=== PATIENT | male | born 1950 | race African-American/Black ===

== ENCOUNTER 2020-05-12 17:22 | Emergency (ER) | payer OTHER ==
[~2020-05-12] VITALS: Ht 182.9 cm; Wt 72.6 kg
[2020-05-12 18:57] LABS: ABSOLUTE NEUTROPHILS 5.3 thou/uL (1.4-8.2); BASOPHILS 0.2 % (0.0-2.0); HEMATOCRIT 37.1 % (42.0-52.0); HEMOGLOBIN 12.4 gm/dL (14.0-18.0); LYMPHOCYTES 13.3 % (24.0-44.0); MCHC 33.4 g/dL (28.0-37.0); MCV 86.6 fL (80.0-100.0); MONOCYTES 6.7 % (1.0-8.0); PLATELET COUNT 293 thou/uL (150-400); POLYS 77.8 % (36.0-66.0); RBC 4.29 mil/uL (4.50-6.00); RDW 15.8 % (10.5-14.5); WBC 6.9 thou/uL (4.0-11.0)
[2020-05-12 19:05] LABS: ANION GAP 7 mmol/L (7-16); BUN 23 mg/dL (7-18); CALCIUM 8.8 mg/dL (8.5-10.1); CHLORIDE 102 mmol/L (98-107); CO2 29 mmol/L (21-32); CREATININE 1.3 mg/dL (0.7-1.3); GLUCOSE 141 mg/dL (74-106); POTASSIUM 4.5 mmol/L (3.5-5.1); SODIUM 138 mmol/L (136-145)
[2020-05-12 19:14] LABS: MAGNESIUM 1.8 mg/dL (1.8-2.4); TROPONIN-I <0.06 ng/mL (<0.06)
[2020-05-12] MEDS ORDERED: GLUCOPHAGE1000 MG PO (19:20)
[2020-05-12] MEDS ORDERED: ASPIRIN325 PO (19:20)
[2020-05-12] MEDS ORDERED: LIPITOR10 MG PO (19:21)
[2020-05-12] MEDS ORDERED: ARICEPT10 M1 PO (19:21)
[2020-05-12] MEDS ORDERED: OXYBUTYNIN 5 MG5 M2 PO (19:22)
[2020-05-12 19:36] LABS: URINE BLOOD NEGATIVE (Negative); URINE CLARITY CLEAR; URINE COLOR YELLOW; URINE GLUCOSE-RANDOM* 1+ (Negative); URINE KETONES NEGATIVE (Negative); URINE LEUKOCYTES-REFLEX NEGATIVE (Negative); URINE NITRITE-REFLEX NEGATIVE (Negative); URINE PROTEIN (DIPSTICK) TRACE (Negative); URINE SPECIFIC GRAVITY >= 1.030 (1.005-1.035)
[2020-05-12 19:38] LABS: ICTOTEST (BILI CONFIRMATORY) Negative (Negative); URINE BILIRUBIN NEGATIVE (Negative)
[2020-05-12 21:25] VITALS: BP 108/63
--- NOTE | 2020-05-13 07:47 | EKG ---
[facility] [place] [address] ELECTROCARDIOGRAM REPORT Name: BERTO ALEX Room #: DEP [facility].#: [id number] Admission: 05/12/20 Attend Phys: Discharge: 05/12/20 Date of : 48 Report #: [id number] THIS REPORT FOR: cc: ISRRAEL - Naina family physician/PCP FAM - Naina family physician/PCP Danilo Weiss MD [facility] THIS REPORT FOR: //name// [facility] ED Test Date: 2020-05-12 Test Time: 18:13:54 Pat Name: BERTO ALEX Department: Room: Gender: Title Checker: no : 1950 Requested By: Alphonse Mcfadden Order Number: [id number] MD: Danilo Weiss Measurements Intervals [place] Rate: 90 P: 44 IN: 133 QRS: 56 QRSD: 81 T: 62 QT: 355 QTc: 435 Interpretive Statements Sinus rhythm Normal tracing No previous ECG available for comparison Electronically Signed On 05-13-2020 7:47:46 CDT by Danilo Weiss [email or web address] <ELECTRONICALLY SIGNED> By: Danilo Weiss MD, [facility] 05/13/20 0747 1813 12 Danilo Weiss MD, FACC /EPI
== END 2020-05-12 20:30 | disposition home or self-care (01) ==
LOC: ER 17:22
PROVIDERS: Emergency Medicine
DX: R53.1 Weakness (principal); R41.0 Disorientation, unspecified; Z79.82 Long term (current) use of aspirin; Z79.899 Other long term (current) drug therapy; Z20.828 Contact with and (suspected) exposure to other viral communicable diseases

== ENCOUNTER 2020-10-19 03:37 | Inpatient (IN) | payer OTHER ==
[~2020-10-19] VITALS: Ht 182.9 cm; Wt 68.0 kg
--- NOTE | ~2020-10-19 | EEG ---
[facility] [place] [address] ELECTROENCEPHALOGRAM Name: BERTO ALEX Room #: 461-P ADM IN M.R.#: [id number] Admission: 10/19/20 Attend Phys: Vinay Harvey MD Discharge: Date of : 48 Report #: [id number] THIS REPORT FOR: //name// DATE OF SERVICE: 10/21/2020 This patient is being evaluated for the possibility of seizure. EEG was done by placing the electrode by standard 10-20 system of electrode placement. Both referential and sequential montages were used for recording. Background activity in this patient's EEG is about 7-8 Hz and 30 microvolt. It is a symmetrical activity. Photic stimulation is unremarkable. The patient became drowsy that is associated with bilateral slowing and vertex sharp waves. Throughout the record, no active epileptiform activity was noticed. IMPRESSION: This patient's EEG is poorly formed and somewhat disorganized. That is a nonspecific abnormality, which can occur with dementia, encephalopathy, effect of psychotropic medication, etc. Clinical correlation is recommended. By: 04 18 Braden Mariee MD /nt
--- NOTE | ~2020-10-19 | HC ---
[facility] [place] [address] CONSULTATION Name: BERTO ALEX Room #: 461-P ADM IN M.R.#: [id number] Admission: 10/19/20 Attend Phys: Vinay Harvey MD Discharge: Date of : 48 Report #: [id number] THIS REPORT FOR: cc: ISRRAEL - No family physician/PCP FAM - No family physician/PCP Braden Mariee MD ~ DATE OF SERVICE: 10/20/2020 HISTORY OF PRESENT ILLNESS: This is a 70-year-old male patient who was evaluated by me for seizure. The patient is not able to provide any history. I reviewed all the notes and subsequently called the patient's . The indicates that this patient has advanced dementia which is present for a long time. He saw a neurologist at one time. He does not remember when but a few years ago. Now, he may need a followup with his primary care physician. He was admitted with many episodes of confusion. I reviewed the notes. The notes indicate that the ambulance people had been to his house multiple times. I am not getting a clear history from the . The provides care, but home health visits the patient sometime, she said she provides care, mostly by herself. REVIEW OF SYSTEMS: Indicate that this patient appeared to have an advanced dementia. He had what looks like a seizure from Emergency Room, they gave him Keppra. When I saw him, he was conscious and alert, but his memory was very poor and that will be described later. REVIEW OF SYSTEMS: A 14-point review of system was carried out. It looks like his blood sugar was 153 when the ambulance people saw him. He did have sodium of 148, which was trace high. Rest of the 14-point review of system, the best I can get from the records as well as from the is mostly noncontributory except he had a stroke in the past. He has generalized weakness. PAST MEDICAL HISTORY: Negative for seizure, but positive for dementia. FAMILY HISTORY: Unremarkable. SOCIAL HISTORY: As described. is the main caregiver. PHYSICAL EXAMINATION: Limited. He is alert. He is awake. He will say a few words. He could not tell me what month or what hospital he is in, but his speech appeared to be present. He moves both sides. Neither he cooperates with the motor nor sensory examination. There is no meningeal sign. There is no carotid bruit. Cardiac and respiratory examinations appear noncontributory. Blood pressure is 116/71, respirations 12, pulse is 77. He had an MRI of the brain, which showed extensive chronic changes, but no acute changes. [address] [address] CONSULTATION Name: BERTO ALEX Room #: 461-P ADM IN M.R.#: [id number] Admission: 10/19/20 Attend Phys: Vinay Harvey MD Discharge: Date of : 48 Report #: [id number] IMPRESSION: This patient most likely has pretty significant baseline dementia. These patients are predisposed to seizures. His MRI correlates with that because he has pretty significant atrophy and white matter ischemic changes. This patient should be on anticonvulsant indefinitely. He is on Keppra and I will suggest continuing Keppra. We will get an EEG done. wants to take care of him at home and if she can do that that can be done, but he is going to be a total care. I will suggest very conservative care in this patient because of his advanced dementia. I will get an EEG done, but we would not have any other further testing done and after that we should start working on disposition. I spent more than 50 minutes time of taking care of this patient today and majority was spent counseling and coordinating. If his swallowing okay by tomorrow, Keppra can be switched to p.o. medication. By: 20 1 Braden Mariee MD /nt
[~2020-10-19 03:37] MED LIST: ARICEPT10 M1 PO; ASPIRIN325 PO; GLUCOPHAGE1000 MG PO; LIPITOR10 MG PO; OXYBUTYNIN 5 MG5 M2 PO
[2020-10-19 03:43] VITALS: BP 91/62
[2020-10-19] MEDS ORDERED: OMEPRAZOLE 20 M20 M1 PO (04:13)
[2020-10-19] MEDS ORDERED: VITAMIN D310 MCG PO (04:14)
[2020-10-19] MEDS ORDERED: RISPERDAL 1 MG T1 MG PO (04:15)
[2020-10-19] MEDS ORDERED: FLOMAX0.4 MG PO (04:15)
[2020-10-19 04:35] LABS: ABSOLUTE NEUTROPHILS 7.3 thou/uL (1.4-8.2); BASOPHILS 0.3 % (0.0-2.0); EOSINOPHILS 2.8 % (0.0-3.0); HEMATOCRIT 36.3 % (42.0-52.0); HEMOGLOBIN 11.4 gm/dL (14.0-18.0); LYMPHOCYTES 20.2 % (24.0-44.0); MCH 27.7 pg (26.0-34.0); MCHC 31.3 g/dL (28.0-37.0); MCV 88.4 fL (80.0-100.0); MONOCYTES 6.5 % (1.0-8.0); PLATELET COUNT 275 thou/uL (150-400); POLYS 70.2 % (36.0-66.0); RDW 17.4 % (10.5-14.5); WBC 10.5 thou/uL (4.0-11.0)
[2020-10-19 04:36] LABS: URINE BILIRUBIN NEGATIVE (Negative); URINE BLOOD NEGATIVE (Negative); URINE CLARITY CLEAR; URINE COLOR YELLOW; URINE GLUCOSE-RANDOM* 1+ (Negative); URINE KETONES 1+ (Negative); URINE LEUKOCYTES-REFLEX NEGATIVE (Negative); URINE NITRITE-REFLEX NEGATIVE (Negative); URINE PROTEIN (DIPSTICK) TRACE (Negative); URINE SPECIFIC GRAVITY >= 1.030 (1.005-1.035); URINE UROBILINOGEN 0.2 E.U./dl (0.2-1.0)
[2020-10-19 04:53] LABS: ANION GAP 23 mmol/L (7-16); BUN 15 mg/dL (7-18); CALCIUM 10.1 mg/dL (8.5-10.1); CHLORIDE 108 mmol/L (98-107); CO2 17 mmol/L (21-32); CREATININE 1.3 mg/dL (0.7-1.3); GLUCOSE 154 mg/dL (74-106); POTASSIUM 4.4 mmol/L (3.5-5.1); SODIUM 148 mmol/L (136-145)
[2020-10-19 04:56] LABS: AMP/METHAMP Negative (Negative); BARBITURATES Negative (Negative); BENZODIAZEPINES Negative (Negative); COCAINE Negative (Negative); METHADONE Negative (Negative); OPIATES Negative (Negative); PCP Negative (Negative)
[2020-10-19 05:01] LABS: ALBUMIN 3.2 g/dL (3.4-5.0); MAGNESIUM 1.7 mg/dL (1.8-2.4); SGOT 23 U/L (15-37); SGPT 19 U/L (30-65); TOTAL BILIRUBIN 0.1 mg/dL (0.2-1.0); TOTAL PROTEIN 6.7 g/dL (6.4-8.2); TROPONIN-I <0.06 ng/mL (<0.06)
--- NOTE | 2020-10-19 07:56 | NUR ---
CALLED AND ASKED ABOUT HER . I TOLD HER ABOUT THE SEIZURE HE HAD THIS MORNING. GAVE ME UPDATED PHONE NUMBERS AND ADDRESS. I GAVE THE INFORMATION TO THE ADMISSIONS. SHE STATED SHE WILL BE THE DESIGNATED VISITOR AND THAT SHE WILL BE UP TO VISIT HOME SOON
[2020-10-19 13:40] VITALS: BP 123/83
[2020-10-19 23:13] VITALS: BP 119/69
[2020-10-20 05:00] VITALS: BP 115/76
[2020-10-20 05:50] LABS: CALCIUM 8.9 mg/dL (8.5-10.1); CREATININE 0.8 mg/dL (0.7-1.3); POTASSIUM 3.7 mmol/L (3.5-5.1)
[2020-10-20 08:52] VITALS: BP 106/72
[2020-10-20 17:50] VITALS: BP 99/63
[2020-10-20 19:20] VITALS: BP 99/63
[2020-10-20 19:44] VITALS: BP 116/71
[2020-10-20 20:17] VITALS: BP 114/71
[2020-10-21 00:42] VITALS: BP 107/67
--- NOTE | 2020-10-21 02:16 | NUR ---
ASSUMED CARE OF PT FROM ER AT 1955HRS. PT IS ALERT BUT ONLY ORIENTED TO SELF. FALL PRECAUTION IN PLACE. PT WAS ORIENTED TO THE UNIT AND HIS BUT INFORMATION WAS NOT RETAINED. PT WAS NOT ABLE TO ANSWER ALL ADMISSION QUESTIONS OR SIGN CONSENTS. ASSESSMENT CHARTED. CONDOM CATH PLACED TO MANAGE INCONTINENCE. SEIZURE PRECAUTION IN PLACE. PT HAS HX OF CVA AFFECTING LEFT SIDE. PT HAS SOME EXPRESSIVE APHASIA. ORDERS STARTED. PT WAS ABLE TO GET COMFORTABLE AND SLEEP PART OF THE SHIFT. VSS AND NO S/S OF ACUTE DISTRESS. WILL CONTINUE TO MONITOR.
[2020-10-21 05:19] VITALS: BP 104/64
[2020-10-21 09:48] VITALS: BP 138/69
--- NOTE | 2020-10-21 11:59 | NUR ---
PT ADMITTED RELATED TO SEIZURE; AMS. CM REVIEWED CHART AND SPOKE WITH CARE TEAM. CM CALLED AND SPOKE WITH PT'S CARLOS. SHE INDICATED THAT THEY RESIDE IN AN APARTMENT WITH NO STEPS TO ENTER AND NO STEPS INSIDE. SPOUSE INDICATED THAT SHE ASSISTS WITH ALL ADLS. SPOUSE INDICATED THAT PT HAD A WC, FWW, CANE, SHOWER CHAIR FOR HOME USE. SHE INDICATED THAT PT HAD BEEN ON SERVICE WITH [facility] AND THAT SHE WOULD PREFER THAT PT RETURN HOME AND RESUME SERVICES WITH THEM ONCE MEDICALLY STABLE RATHER THAN GO FOR A POST ACUTE CARE STAY SOMEWHERE. SPOUSE IS TO VISIT THIS AFTERNOON AROUND 1530. CM TO FOLLOW INDICATED WITH DC PLANNING.
--- NOTE | 2020-10-21 15:02 | NUR ---
Received awake on bed. Due medications given as prescribed, crushed and mixed with apple sauce. On MS, not on telemetry; no complains and signs of chest pain, crushing sensation and heaviness. Assisted in ADLs- with L sided weakness due to hx of cva. On room air. On heart healthy diet- tolerating well; no nausea, no vomiting and no abdominal pain noted; assisted and encouraged in eating and drinking- Dr Smiley informed that pt might need ST evaluation- orders made. Incontinent of bowel and bladder, checked frequently and changed as needed. Falls bundle in place. With R upper arm- D5 at 100cc/hr, infusing well. Admission forms to be signed- no relative at the bedside, pt confused. Pt seen and evaluated by PT/OT, able to sit out on the chair.
[2020-10-21 16:10] VITALS: BP 142/68
[2020-10-21 19:45] VITALS: BP 124/72
--- NOTE | 2020-10-22 03:57 | NUR ---
ASSUMED CARE OF PT AT 1900HRS. PT ALERT BUT ONL ORIENTED TO SELF. FALL PRECAUTION IN PLACE. PT REQUIRES MAX ASSIST FOR TRANSFERS. PT DENIED PAIN NAUSEA OR SOA. ASSESSMET CHARTED. PT TOOK HS MEDS CRUSHED WITH APPLESAUCE. PT IS INCT AND CONDOM CATH WAS REAPPLIED. PT WAS ABLE TO GET COMFORTABLE AND SLEEP PART OF THE SHIFT. WILL CONTIUE TO DENNISE.
[2020-10-22 10:14] VITALS: BP 111/63
--- NOTE | 2020-10-22 11:48 | NUR ---
FAXED RESUMPTION OF CARE REFERRAL TO [facility] SPOKE WITH JAMAL IN INTAKE THEY WILL RESUME CARE AT DISCHARGE.
[2020-10-22 11:49] VITALS: BP 111/63
[2020-10-22 14:30] VITALS: BP 111/63
[2020-10-22] MEDS ORDERED: KEPPRA 500 MG500 MG PO (15:19)
[2020-10-22] MEDS ORDERED: ACETAMINOPHEN325 M1 PO (15:19)
--- NOTE | 2020-10-22 16:20 | NUR ---
FAXED DC ORDERS/SUMMARY TO [facility] SPOKE WITH JAMAL IN INTAKE SHE RECEIVED ORDERS AND WILL RESUME CARE WILL NOTIFY PT TO ARRANGE VISITS.
[2020-10-22 16:46] VITALS: BP 111/63
--- NOTE | 2020-10-22 16:48 | NUR ---
ASSUMED CARE OF PT AT SHIFT CHANGE. ASSESSMENT CHARTED. MEDS GIVEN PER JAN. PT ALERT TO SELF. PT AMBULATED WITH PT IN CISSE WITH WALKER. FOLLOWS DIRECTIOS WELL. WANTED HIM DISCHARGED HOME WITH HOME HEALTH, NOT HOSPICE. DISCHARGE ORDERS COMPLETE, IV DC'D. TRANSPORTATION HOME PROVIDED BY [facility] AT 1640.
== END 2020-10-22 16:40 | disposition home health service (06) | DRG 100 ==
LOC: ER 03:37 → EROBS 05:25 → 4W 05:25 → EROBS 09:30 → 4W 10-20 19:49
PROVIDERS: Emergency Medicine; Hospitalist; Psychiatry & Neurology Neuromuscular Medicine; ADMIT Internal Medicine; ATTEND Internal Medicine
DX: G40.409 Other generalized epilepsy and epileptic syndromes, not intractable, without status epilepticus (principal); G93.41 Metabolic encephalopathy; E87.0 Hyperosmolality and hypernatremia; I69.354 Hemiplegia and hemiparesis following cerebral infarction affecting left non-dominant side; E78.5 Hyperlipidemia, unspecified; E11.9 Type 2 diabetes mellitus without complications; F03.90 Unspecified dementia, unspecified severity, without behavioral disturbance, psychotic disturbance, mood disturbance, and anxiety; E88.89 Other specified metabolic disorders; N32.81 Overactive bladder; Z66 Do not resuscitate; Z88.8 Allergy status to other drugs, medicaments and biological substances; Z79.899 Other long term (current) drug therapy
CPT/HCPCS: 10047

== ENCOUNTER 2021-05-13 17:13 | Emergency (ER) | payer OTHER ==
[~2021-05-13] VITALS: Ht 182.9 cm; Wt 54.4 kg
--- NOTE | ~2021-05-13 | EMS ---
[address] [address] EMS Patient Care Report Name: BERTO ALEX Room #: DEP ESTHER Mehta#: [id number] Admission: 05/13/21 Attend Phys: Discharge: 05/13/21 Date of : 48 Report #: [id number] THIS REPORT FOR: //name// Report Transmitted: 05/19/2021 14:33 EMS Care Summary [place], [place]/[facility] Incident [id number] @ 05/13/2021 16:34 Incident Location [address] [place] [address] Patient BERTO ALEX Male, 70 Years 1950 Patient Address [address] [place] [address] Patient History Dementia,Stroke/CVA,Depression, Patient Allergies Plavix, Patient Medications Lorazepam, Hyoscyamine, Morphine, Chief Complaint SEPSIS Disposition Transported No Lights/[place] Dispatch Reason Sick Person Transported To [facility] Narrative M41 DISPATCHED TO A SICK PERSON WITH [place] [employer]RE. [address] [address] EMS Patient Care Report Name: BERTO ALEX Room #: DEP Janine#: [id number] Admission: 05/13/21 Attend Phys: Discharge: 05/13/21 Date of : 48 Report #: [id number] M41 AOS AND FOUND A MALE PT LYING IN BED. HOSPICE NURSE STATES THAT FAMILY WANTS HIM TRANSPORTED TO THE HOSPITAL FOR A POSSIBLE INFECTION. THE PTS FAMILY HAS ALREADY SIGNED THE HOSPICE REVOCATION. THE PT AT THIS TIME IS HYPOXIC ON HIS HOME O2, PT IS HOT TO THE TOUCH AND BP IS LOW. BROWN URINE NOTED IN PTS DEMPSEY BAG. PT IS ALERT LOOKING AROUND TRACKING MOVEMENT BUT DOES NOT SPEAK. FAMILY STATES THAT PT HAS A DNR. THEY ARE UNABLE TO PROVIDE A COPY. THEY STATE THAT IF ANYTHING HAPPENS IN TRANSPORT TO ATTEMPT TO RECESSATATE. PT MOVED TO A WHEELCHAIR AND ONTO THE COT. VITALS OBTAINED. BGA OBTIANED. IV ACCESS ATTEMPTED AND FAILED. 4 LEAD OBTAINED. PT WAS PLACED ON 15LPM NC AND SATS IMPROVED. M[address] [facility]. EN ROUTE IV ACCESS ATTEMPTED AGAIN AND FAILED. EN ROUTE PT CONDITION REMAINED UNCHANGED. REPORT GIVEN TO ADINA NEWMAN. SIGNATURES OBTAINED. I SIGNED FOR PT DUE TO AMS. TRANSFER OF CARE TOOK PLACE. M41 IN SERVICE. NANCY VIERA SMOKING PIPE COATER Initial Vitals @17:04P: 143,BP: 94/64, @17:05P: 142,BP: 80/56,CO: 7,SpO2: 97, @16:54P: 61,BP: 90/65,SpO2: 81, @16:55P: 149,CO: 9,SpO2: 95, @16:57P: 145,BP: 87/56,CO: 7,SpO2: 99, @17:00P: 143,BP: 84/51,CO: 5,SpO2: 99, @17:06P: 141,BP: 88/57,SpO2: 99, @16:53P: 64,SpO2: 70, @16:56P: 146,R: 24,BP: 91/66,GCS: 10,Glucose: 240,SpO2: 97,Revised Trauma: 11,FL Suspected: false @17:07P: 141,R: 24,BP: 86/62,GCS: 10,CO: 6,SpO2: 98,Revised Trauma: 10,FL Suspected: false Assessments @16:46MENTAL:Confused,Other,SKIN:Pale,Hot,HEENT:LUNG SOUNDS:General: No Abnormalities,Left Upper: No Abnormalities,Right Upper: No Abnormalities,Left Lower: No Abnormalities,Right Lower: No Abnormalities,ABDOMEN:General: No Abnormalities,Left Upper: No Abnormalities,Right Upper: No Abnormalities,Left Lower: No Abnormalities,Right Lower: No Abnormalities,PELVIS//GI:Pelvis [facility] [address] [place] [address] EMS Patient Care Report Name: BERTO ALEX Room #: DEP Janine#: [id number] Admission: 05/13/21 Attend Phys: Discharge: 05/13/21 Date of : 48 Report #: [id number] GUOther,EXTREMITIES:Capillary Refill: Right Upper: < 2 Sec,Left Arm: No Abnormalities,Right Arm: No Abnormalities,Left Leg: No Abnormalities,Right Leg: No Abnormalities,PULSE:Radial: 2+ Normal,NEURO:No Abnormalities, Impression Hypotension Procedures @16:46ALS AssessmentResponse: UnchangedSucceeded@16:533-Lead ECGResponse: UnchangedSucceeded@16:56Saline Lock 0cc (22 ga) Site: Antecubital-LeftResponse: UnchangedFailed@16:50Oxygen FlowRate: 15 Device: Non Re-breather Mask (NRB) Response: ImprovedSucceeded@17:02Saline Lock 0cc (20 ga) Site: Antecubital-RightResponse: UnchangedFailed Timeline 16:33,Call Received 16:33,Dispatch Notified 16:34,Dispatched 16:35,En Route 16:44,On Scene 16:46,At Patient 16:46,ALS Assessment,Response: UnchangedSucceeded, 16:50,Oxygen FlowRate: 15 Device: Non Re-breather Mask (NRB) Response: ImprovedSucceeded, 16:53,3-Lead ECG,Response: UnchangedSucceeded, 16:53,BP: / M,PULSE: 64,RR: R,SPO2: 70 Ox,ETCO2: ,BG: ,PAIN: ,GCS: , 16:54,BP: 90/65 M,PULSE: 61,RR: R,SPO2: 81 Ox,ETCO2: ,BG: ,PAIN: ,GCS: , 16:55,BP: / M,PULSE: 149,RR: R,SPO2: 95 Ox,ETCO2: ,BG: ,PAIN: ,GCS: , 16:56,BP: 91/66 M,PULSE: 146,RR: 24 R,SPO2: 97 Ox,ETCO2: ,B,PAIN: ,GCS: 10, 16:56,Saline Lock 0cc 22 ga Site: Antecubital-Left,Response: UnchangedFailed, 16:57,BP: 87/56 M,PULSE: 145,RR: R,SPO2: 99 Ox,ETCO2: ,BG: ,PAIN: ,GCS: , 16:58,Depart Scene 17:00,BP: 84/51 M,PULSE: 143,RR: R,SPO2: 99 Ox,ETCO2: ,BG: ,PAIN: ,GCS: , 17:02,Saline Lock 0cc 20 ga Site: Antecubital-Right,Response: UnchangedFailed, 17:04,BP: 94/64 M,PULSE: 143,RR: R,SPO2: Ox,ETCO2: ,BG: ,PAIN: ,GCS: , 17:05,BP: 80/56 M,PULSE: 142,RR: R,SPO2: 97 Ox,ETCO2: ,BG: ,PAIN: ,GCS: , 17:06,BP: 88/57 M,PULSE: 141,RR: R,SPO2: 99 Ox,ETCO2: ,BG: ,PAIN: ,GCS: , 17:07,BP: 86/62 M,PULSE: 141,RR: 24 R,SPO2: 98 Ox,ETCO2: ,BG: ,PAIN: ,GCS: 10, 17:08,At Destination 17:17,Call Closed Disclaimer v1.1 Copyright 2020 [employer] This EMS Care Summary contains data elements from the applicable legal record (which may be displayed differently). It is designed to provide pertinent [address] [address] EMS Patient Care Report Name: LUIS ENRIQUE ALEXZO Room #: DEP ER Janine#: [id number] Admission: 05/13/21 Attend Phys: Discharge: 05/13/21 Date of : [birth year] Report #: [id number] information for the following purposes: continuity of care, clinical quality, and state data reporting. The complete legal record is available to ED staff and administrators of the receiving hospital in [employer]'s Patient Tracker. All data is provided "as is."
[~2021-05-13 17:13] MED LIST changes: +ACETAMINOPHEN325 M1 PO; +FLOMAX0.4 MG PO; +KEPPRA 500 MG500 MG PO; +OMEPRAZOLE 20 M20 M1 PO; +RISPERDAL 1 MG T1 MG PO; +VITAMIN D310 MCG PO
[2021-05-13 17:29] LABS: BE(vivo) -6.5 mmol/L (-2 to +3); HCO3 19.6 mmol/L (22.0-26.0); PCO2 41.2 mmHg (35.0-45.0); PO2 133.3 mmHg (80.0-100.0); pH 7.296 (7.360-7.450); sO2 98.4 % (92.0-98.0)
[2021-05-13 17:36] LABS: ABSOLUTE NEUTROPHILS 11.9 thou/uL (1.4-8.2); BASOPHILS 0.2 % (0.0-2.0); LYMPHOCYTES 3.2 % (24.0-44.0); MCH 28.6 pg (26.0-34.0); MCHC 31.8 g/dL (28.0-37.0); MCV 89.9 fL (80.0-100.0); MONOCYTES 7.4 % (1.0-8.0); PLATELET COUNT 294 thou/uL (150-400); POLYS 89.2 % (36.0-66.0); RBC 4.89 mil/uL (4.50-6.00); RDW 15.9 % (10.5-14.5); WBC 13.3 thou/uL (4.0-11.0)
[2021-05-13 17:57] LABS: URINE BILIRUBIN 3+ (Negative); URINE BLOOD 3+ (Negative); URINE CLARITY CLOUDY; URINE COLOR RED; URINE GLUCOSE-RANDOM* TRACE (Negative); URINE KETONES 1+ (Negative); URINE PROTEIN (DIPSTICK) 3+ (Negative)
[2021-05-13 17:58] LABS: ICTOTEST (BILI CONFIRMATORY) Positive (Negative)
[2021-05-13 17:59] LABS: BACTERIA-REFLEX None Seen /HPF (None Seen); SQUAMOUS None Seen /LPF (0-3); URINE RBC >20 Many /HPF (NONE SEEN); URINE WBC-REFLEX 6-15 Few /HPF (0-5)
[2021-05-13 18:00] LABS: CRYSTALS None Seen /LPF (None Seen)
[2021-05-13 18:08] LABS: ALBUMIN 2.9 g/dL (3.4-5.0); CREATININE 8.5 mg/dL (0.7-1.3); TOTAL BILIRUBIN 0.5 mg/dL (0.2-1.0); TOTAL PROTEIN 7.3 g/dL (6.4-8.2)
[2021-05-13 18:10] LABS: POTASSIUM 7.1 mmol/L (3.5-5.1)
[2021-05-13 20:18] VITALS: BP 89/73
--- NOTE | 2021-05-14 07:25 | EKG ---
[place] [address] [facility] [place] [address] ELECTROCARDIOGRAM REPORT Name: BERTO ALEX [facility]: [facility] [id number] Admission: 05/13/21 Attend Phys: Discharge: 05/13/21 Date of : [birth year] Report #: [id number] [facility] ED Test Date: 2021-05-13 Test Time: 17:17:48 Pat Name: BERTO ALEX Department: Room: Gender: M Peritoneal Dialysis Registered Nurse: [place] : 1950 Requested By: Anatoliy Sandhu Order Number: [id number] MD: Papo Martinez Measurements Intervals [place] Rate: 139 P: 19 SD: 122 QRS: 51 QRSD: 76 T: 65 QT: 279 QTc: 424 Interpretive Statements Sinus tachycardia Borderline T wave abnormalities Compared to ECG 10/19/2020 04:25:41 T-wave abnormality now present Electronically Signed On 05-14-2021 7:25:32 CDT by Papo Martinez [email or web address] <ELECTRONICALLY SIGNED> By: Papo Martinez MD, [facility] 05/14/21 0725 1717 1717 Papo Martinez MD, FACC /EPI
== END 2021-05-13 20:18 | disposition home or self-care (01) ==
LOC: ER 17:13
PROVIDERS: Emergency Medicine
DX: N17.9 Acute kidney failure, unspecified (principal); E86.0 Dehydration; E87.5 Hyperkalemia; F03.90 Unspecified dementia, unspecified severity, without behavioral disturbance, psychotic disturbance, mood disturbance, and anxiety; E11.9 Type 2 diabetes mellitus without complications; E78.5 Hyperlipidemia, unspecified; Z86.73 Personal history of transient ischemic attack (TIA), and cerebral infarction without residual deficits; Z79.899 Other long term (current) drug therapy; Z79.82 Long term (current) use of aspirin; Z88.8 Allergy status to other drugs, medicaments and biological substances